=== PATIENT | female | born 1950 | race Caucasian/White ===

== ENCOUNTER 2023-11-06 21:38 | Inpatient (IN) | payer OTHER ==
[2023-11-06 21:44] VITALS: BMI 16.1
[2023-11-06 22:35] LABS: VENOUS BASE EXCESS 10.2 mmol/L (-2-2); VENOUS O2 SATURATION 24.9 % (70-80); VENOUS PH 7.282 (7.310-7.410)
[2023-11-06] MEDS ORDERED: ALBUTEROL SO4 2.5/IPRATROPIUM 0.5 INH SOL 3 ML VIAL.NEB. NEB ONE (22:35)
[2023-11-06 22:36] LABS: BASO % 0.9 % (0-2.0); EOS % 8.6 % (0-4.5); HEMATOCRIT 44.5 % (32.4-45.2); HEMOGLOBIN 14.9 GM/dL (10.7-15.3); LYMPH % 22.5 % (8-40); MCH 31.3 pg (25.7-33.7); MCHC 33.6 g/dl (32.0-36.0); MEAN CELL VOLUME 93.3 fl (80-96); MONO % 11.3 % (3.8-10.2); NEUT % 56.7 % (42.8-82.8); PLATELET COUNT 261 10^3/uL (134-434); RBC 4.77 M/mm3 (3.60-5.2); RDW 13.5 % (11.6-15.6); WHITE BLOOD COUNT 5.5 K/mm3 (4.0-10.0)
[2023-11-06] MEDS ORDERED: methylPREDNISolone NA SUCC 125 MG/2 ML VIAL ONE (22:36)
[2023-11-06] MEDS: methylPREDNISolone NA SUCC 125 MG/2 ML VIAL IVPUSH ONE (22:44)
[2023-11-06] MEDS ORDERED: ACETYLCYSTEINE 20% 200MG/ML 4 ML VIAL *FOR ORAL / INH USE ONLY ONE (22:45)
[2023-11-06] MEDS: ALBUTEROL SO4 2.5/IPRATROPIUM 0.5 INH SOL 3 ML VIAL.NEB. NEB SCH (22:46)
[2023-11-06] MEDS: ACETYLCYSTEINE 20% 200MG/ML 30 ML VIAL *FOR ORAL / INH USE ONLY NEB ONE (22:54)
[2023-11-06 22:57] LABS: POTASSIUM 4.7 mmol/L (3.5-5.1)
[2023-11-06 22:58] LABS: CALCIUM 9.7 mg/dL (8.5-10.1)
[2023-11-06 23:00] LABS: BLOOD UREA NITROGEN 9.6 mg/dL (7-18)
[2023-11-06 23:03] LABS: CREATININE 0.5 mg/dL (0.55-1.3)
[2023-11-06 23:04] LABS: BILIRUBIN,TOTAL 0.6 mg/dL (0.2-1); TOT PROT 7.1 g/dl (6.4-8.2)
[2023-11-06 23:50] LABS: N-TERMINAL BNP 187.7 pg/ml (5-125)
[2023-11-07] MEDS ORDERED: AZITHROMYCIN IVPB 500 MG/250 ML BAG IVPB ONE (00:52)
[2023-11-07] MEDS: AZITHROMYCIN IVPB 500 MG in DEXTROSE 5%-WATER - 250 ML IVPB ONE (01:05)
[2023-11-07] MEDS ORDERED: CEFTRIAXONE 1 GM/50 ML BAG ONE (01:51)
[2023-11-07] MEDS ORDERED: ALBUTEROL SO4 2.5/IPRATROPIUM 0.5 INH SOL 3 ML VIAL.NEB. NEB PRN (02:57)
[2023-11-07] MEDS: guaiFENesin 600 MG TABLET.ER (FP) PO SCH (06:14)
[2023-11-07] MEDS: methylPREDNISolone NA SUCC 40 MG/1 ML VIAL IVPUSH SCH ×2 (06:21→13:02)
[2023-11-07] MEDS ORDERED: ALBUTEROL SO4 2.5/IPRATROPIUM 0.5 INH SOL 3 ML VIAL.NEB. NEB ONE ×2 (06:43→10:45)
[2023-11-07] MEDS ORDERED: PIPERACILLIN/TAZOB 4.5 GM 4.5 GM/100 ML BAG IVPB ONE (06:43)
[2023-11-07 06:49] LABS: BASO % 0.3 % (0-2.0); EOS % 0.2 % (0-4.5); HEMOGLOBIN 14.4 GM/dL (10.7-15.3); MCH 32.3 pg (25.7-33.7); MCHC 34.3 g/dl (32.0-36.0); MEAN CELL VOLUME 94.3 fl (80-96); MEAN PLT VOLUME 7.4 fl (7.5-11.1); MONO % 1.8 % (3.8-10.2); NEUT % 82.7 % (42.8-82.8); PLATELET COUNT 230 10^3/uL (134-434); RBC 4.45 M/mm3 (3.60-5.2); RDW 12.9 % (11.6-15.6); WHITE BLOOD COUNT 2.7 K/mm3 (4.0-10.0)
[2023-11-07] MEDS: PIPERACILLIN/TAZOB 4.5 GM 4.5 GM in DEXTROSE 5%-WATER 100 ML IVPB SCH ×2 (07:00→16:54)
[2023-11-07] MEDS: ALBUTEROL SO4 2.5/IPRATROPIUM 0.5 INH SOL 3 ML VIAL.NEB. NEB SCH (07:00)
[2023-11-07 07:09] LABS: POTASSIUM 4.4 mmol/L (3.5-5.1)
[2023-11-07 07:13] LABS: ALBUMIN 3.6 g/dl (3.4-5.0); BLOOD UREA NITROGEN 7.3 mg/dL (7-18); MAGNESIUM 1.8 mg/dL (1.8-2.4)
[2023-11-07 07:15] LABS: CREATININE 0.4 mg/dL (0.55-1.3)
[2023-11-07 07:16] LABS: BILIRUBIN,TOTAL 1.1 mg/dL (0.2-1); PHOSPHOROUS 2.8 mg/dL (2.5-4.9); TOT PROT 6.3 g/dl (6.4-8.2)
[2023-11-07 08:09] LABS: ARTERIAL BLD GAS O2 SATURATION 91.8 % (95-98); ARTERIAL BLOOD GAS BASE EXCESS 7.7 mmol/L (-2-2); ARTERIAL BLOOD GAS PO2 66.2 mmHg (80-100)
[2023-11-07 08:18] LABS: ALLENS TEST POSITIVE
[2023-11-07] MEDS ORDERED: TIOTROPIUM BROMIDE 2.5 MCG (SPIRIVA) RESPIMAT INHALER IH SCH (10:00)
[2023-11-07] MEDS ORDERED: BUDESONIDE/FORMETEROL FUMARATE 160/4.5 mcg INHALER IH SCH (10:00)
[2023-11-07] MEDS ORDERED: NICOTINE 21 MG/24 HOURS TOPICAL PATCH ONE (10:45)
[2023-11-07] MEDS ORDERED: PREGABALIN 50 MG CAPSULE ONE (10:45)
[2023-11-07] MEDS ORDERED: ENOXAPARIN NA (PORCINE) 40 MG/0.4 ML DISP.SYRIN SQ ONE (10:46)
[2023-11-07] MEDS: BUDESONIDE/FORMETEROL FUMARATE 160/4.5 mcg INHALER IH SCH (11:30)
[2023-11-07] MEDS: NICOTINE 21 MG/24 HOURS TOPICAL PATCH TD SCH (11:30)
[2023-11-07] MEDS: ENOXAPARIN NA (PORCINE) 40 MG/0.4 ML DISP.SYRIN SQ SCH (11:30)
[2023-11-07] MEDS: PREGABALIN 100 MG CAPSULE PO SCH (11:30)
[2023-11-07] MEDS: ROFLUMILAST 500 MCG TABLET PO SCH (11:30)
[2023-11-07] MEDS: IPRATROPIUM BR 0.02% 0.5 MG/2.5 ML VIAL.NEB. NEB SCH (15:05)
[2023-11-07] MEDS: LEVALBUTEROL HCL 0.63 MG/3 ML VIAL.NEB. IH SCH (15:05)
[2023-11-07] MEDS: ATORVASTATIN CA 10 MG TABLET (FP) PO SCH (21:06)
[2023-11-07] MEDS: PREGABALIN 50 MG CAPSULE PO SCH (21:06)
[2023-11-07] MEDS: MIRTAZAPINE 15 MG TABLET (FP) PO SCH (21:06)
[2023-11-08 08:03] LABS: HEMATOCRIT 43.2 % (32.4-45.2); HEMOGLOBIN 14.5 GM/dL (10.7-15.3); MCH 31.6 pg (25.7-33.7); MCHC 33.7 g/dl (32.0-36.0); MEAN CELL VOLUME 93.8 fl (80-96); MEAN PLT VOLUME 7.5 fl (7.5-11.1); PLATELET COUNT 252 10^3/uL (134-434); RDW 13.2 % (11.6-15.6); WHITE BLOOD COUNT 4.3 K/mm3 (4.0-10.0)
[2023-11-08 08:16] LABS: POTASSIUM 5.1 mmol/L (3.5-5.1)
[2023-11-08 08:22] LABS: BLOOD UREA NITROGEN 9.3 mg/dL (7-18); CALCIUM 9.1 mg/dL (8.5-10.1)
[2023-11-08 08:25] LABS: CREATININE 0.4 mg/dL (0.55-1.3)
[2023-11-08] MEDS: AZITHROMYCIN IVPB 500 MG/250 ML BAG IVPB SCH (09:35)
[2023-11-08 18:41] VITALS: RESP 20
[2023-11-09] MEDS: FLUTICASONE PROP 0.05% 16 GM NASAL SPRAY NS ONE (01:18)
[2023-11-09 08:14] LABS: HEMATOCRIT 47.3 % (32.4-45.2); HEMOGLOBIN 15.7 GM/dL (10.7-15.3); MCH 31.1 pg (25.7-33.7); MCHC 33.2 g/dl (32.0-36.0); MEAN CELL VOLUME 93.7 fl (80-96); MEAN PLT VOLUME 7.7 fl (7.5-11.1); PLATELET COUNT 309 10^3/uL (134-434); RBC 5.05 M/mm3 (3.60-5.2); RDW 13.2 % (11.6-15.6); WHITE BLOOD COUNT 6.2 K/mm3 (4.0-10.0)
[2023-11-09 08:38] LABS: POTASSIUM 4.5 mmol/L (3.5-5.1)
[2023-11-09 08:49] LABS: BLOOD UREA NITROGEN 10.4 mg/dL (7-18)
[2023-11-09 08:51] LABS: CREATININE 0.5 mg/dL (0.55-1.3)
[2023-11-09 08:52] LABS: CALCIUM 9.2 mg/dL (8.5-10.1)
[2023-11-09] MEDS: SODIUM CHLORIDE 1 GM TABLET PO ONE (09:38)
[2023-11-09 14:28] VITALS: BP 138/72; PULSE 102; TEMP 98.4
== END 2023-11-09 16:30 | disposition home or self-care (01) | DRG 190 ==
LOC: JER 21:38 → JERBED 11-07 00:39 → J4W 11-07 12:44
PROVIDERS: ADMIT Internal Medicine; ATTEND Internal Medicine
DX: J43.2 Centrilobular emphysema (principal); E43 Unspecified severe protein-calorie malnutrition; J96.22 Acute and chronic respiratory failure with hypercapnia; E87.1 Hypo-osmolality and hyponatremia; R64 Cachexia; Z68.1 Body mass index [BMI] 19.9 or less, adult; J44.9 Chronic obstructive pulmonary disease, unspecified; E78.5 Hyperlipidemia, unspecified; F41.9 Anxiety disorder, unspecified; F17.210 Nicotine dependence, cigarettes, uncomplicated; M41.9 Scoliosis, unspecified; G62.9 Polyneuropathy, unspecified; Z85.43 Personal history of malignant neoplasm of ovary; Z99.81 Dependence on supplemental oxygen
CPT/HCPCS: 0241U-QW; 36415; 36600; 71045-TC-FY; 71250-TC; 80048; 80053; 82803; 83735; 83880; 83930; 83935; 84100; 84300; 84484; 85025; 85027; 85379; 87899; 93005; 93010; 93971-TC; 94640; 94660; 97116-GP; 97162-GP; 99285-25

== ENCOUNTER 2023-12-05 17:27 | Inpatient (IN) | payer OTHER ==
[2023-12-05] MEDS ORDERED: ONDANSETRON 4 MG/2 ML VIAL ONE (19:38)
[2023-12-05] MEDS: ONDANSETRON 4 MG/2 ML VIAL IVPB ONE (19:58)
[2023-12-05] MEDS: SODIUM CHLORIDE 0.9% 500 ML INFUS.BAG IV ONE (19:58)
[2023-12-05 20:10] LABS: BASO % 0.4 % (0-2.0); EOS % 1.1 % (0-4.5); HEMATOCRIT 41.6 % (32.4-45.2); LYMPH % 14.3 % (8-40); MCH 30.6 pg (25.7-33.7); MCHC 33.7 g/dl (32.0-36.0); MEAN CELL VOLUME 90.9 fl (80-96); MEAN PLT VOLUME 7.3 fl (7.5-11.1); MONO % 9.5 % (3.8-10.2); NEUT % 74.7 % (42.8-82.8); PLATELET COUNT 379 10^3/uL (134-434); RBC 4.57 M/mm3 (3.60-5.2); RDW 13.9 % (11.6-15.6); WHITE BLOOD COUNT 10.2 K/mm3 (4.0-10.0)
[2023-12-05 20:35] LABS: POTASSIUM 5.2 mmol/L (3.5-5.1)
[2023-12-05 20:37] LABS: CALCIUM 9.9 mg/dL (8.5-10.1)
[2023-12-05 20:38] LABS: ALBUMIN 3.4 g/dl (3.4-5.0); BLOOD UREA NITROGEN 23.3 mg/dL (7-18)
[2023-12-05 20:39] LABS: INR 0.87 (0.83-1.09)
[2023-12-05 20:41] LABS: CREATININE 0.8 mg/dL (0.55-1.3)
[2023-12-05 20:43] LABS: BILIRUBIN,TOTAL 1.4 mg/dL (0.2-1); TOT PROT 6.5 g/dl (6.4-8.2)
[2023-12-05] MEDS ORDERED: FAMOTIDINE 20 MG/50 ML IVPB 20 MG/50 ML MG IVPB ONE (21:00)
[2023-12-05] MEDS: FAMOTIDINE 20 MG/50 ML IVPB 20 MG/50 ML MG IVPB ONE (21:19)
[2023-12-05 21:30] LABS: HIV INTERPRETATION NEGATIVE (NEGATIVE)
[2023-12-05 22:39] LABS: POTASSIUM 4.4 mmol/L (3.5-5.1)
[2023-12-05 22:41] LABS: CALCIUM 8.9 mg/dL (8.5-10.1)
[2023-12-05 22:42] LABS: BLOOD UREA NITROGEN 20.4 mg/dL (7-18)
[2023-12-05 22:45] LABS: CREATININE 0.7 mg/dL (0.55-1.3)
[2023-12-05 22:46] LABS: BILIRUBIN,TOTAL 1.2 mg/dL (0.2-1); TOT PROT 5.6 g/dl (6.4-8.2)
[2023-12-05] MEDS ORDERED: ACETAMINOPHEN 1000 MG/100 ML BAG IVPB PRN (23:19)
[2023-12-05] MEDS ORDERED: ONDANSETRON 4 MG/2 ML VIAL IVPUSH PRN (23:30)
[2023-12-05] MEDS: SODIUM CHLORIDE 1,000 ML IV SCH (23:46)
[2023-12-06] MEDS: PREGABALIN 50 MG CAPSULE PO SCH (05:20)
[2023-12-06 07:31] LABS: BASO % 0.5 % (0-2.0); EOS % 1.1 % (0-4.5); HEMATOCRIT 37.9 % (32.4-45.2); HEMOGLOBIN 12.6 GM/dL (10.7-15.3); LYMPH % 14.5 % (8-40); MCH 30.6 pg (25.7-33.7); MCHC 33.2 g/dl (32.0-36.0); MEAN CELL VOLUME 92.2 fl (80-96); MEAN PLT VOLUME 7.7 fl (7.5-11.1); MONO % 10.3 % (3.8-10.2); NEUT % 73.6 % (42.8-82.8); PLATELET COUNT 337 10^3/uL (134-434); RBC 4.11 M/mm3 (3.60-5.2); RDW 13.7 % (11.6-15.6); WHITE BLOOD COUNT 8.7 K/mm3 (4.0-10.0)
[2023-12-06 07:39] LABS: POTASSIUM 4.1 mmol/L (3.5-5.1)
[2023-12-06 07:43] LABS: CALCIUM 8.5 mg/dL (8.5-10.1)
[2023-12-06 07:45] LABS: MAGNESIUM 1.8 mg/dL (1.8-2.4)
[2023-12-06 07:47] LABS: CREATININE 0.6 mg/dL (0.55-1.3)
[2023-12-06 07:48] LABS: BILIRUBIN,TOTAL 1.3 mg/dL (0.2-1); TOT PROT 5.3 g/dl (6.4-8.2)
[2023-12-06 07:50] LABS: PHOSPHOROUS 3.4 mg/dL (2.5-4.9)
[2023-12-06] MEDS ORDERED: LEVALBUTEROL HCL 0.63 MG/3 ML VIAL.NEB. IH ONE ×2 (09:09→20:43)
[2023-12-06] MEDS: LEVALBUTEROL HCL 0.63 MG/3 ML VIAL.NEB. IH SCH (09:44)
[2023-12-06] MEDS: TIOTROPIUM BROMIDE 2.5 MCG (SPIRIVA) RESPIMAT INHALER IH SCH (11:00)
[2023-12-06] MEDS: BUDESONIDE/FORMETEROL FUMARATE 160/4.5 mcg INHALER IH SCH (11:00)
[2023-12-06] MEDS: ROFLUMILAST 500 MCG TABLET PO SCH (11:00)
[2023-12-06] MEDS ORDERED: NICOTINE 7 MG/24 HOURS TOPICAL PATCH TD ONE (11:15)
[2023-12-06] MEDS: NICOTINE 7 MG/24 HOURS TOPICAL PATCH TD SCH (11:26)
[2023-12-06] MEDS ORDERED: ESCITALOPRAM OXALATE 10 MG TABLET ONE (20:42)
[2023-12-06] MEDS: ESCITALOPRAM OXALATE 10 MG TABLET PO SCH (21:08)
[2023-12-06] MEDS: SODIUM CHLORIDE 1,000 ML IV SCH (21:09)
[2023-12-06] MEDS ORDERED: MIRTAZAPINE 15 MG TABLET (FP) PO SCH (22:00)
[2023-12-07 00:59] VITALS: BMI 12.9
[2023-12-07] MEDS: MELATONIN 5 MG TABLETS PO ONE (03:15)
[2023-12-07 09:08] LABS: BASO % 0.7 % (0-2.0); HEMATOCRIT 37.4 % (32.4-45.2); HEMOGLOBIN 12.7 GM/dL (10.7-15.3); LYMPH % 13.1 % (8-40); MCH 31.1 pg (25.7-33.7); MCHC 33.9 g/dl (32.0-36.0); MEAN CELL VOLUME 91.8 fl (80-96); MEAN PLT VOLUME 7.5 fl (7.5-11.1); MONO % 12.6 % (3.8-10.2); NEUT % 72.6 % (42.8-82.8); PLATELET COUNT 325 10^3/uL (134-434); RBC 4.07 M/mm3 (3.60-5.2); RDW 13.8 % (11.6-15.6); WHITE BLOOD COUNT 6.2 K/mm3 (4.0-10.0)
[2023-12-07 09:28] LABS: POTASSIUM 3.8 mmol/L (3.5-5.1)
[2023-12-07 09:32] LABS: ALBUMIN 2.8 g/dl (3.4-5.0); CALCIUM 8.6 mg/dL (8.5-10.1)
[2023-12-07 09:33] LABS: BLOOD UREA NITROGEN 17.9 mg/dL (7-18)
[2023-12-07 09:36] LABS: CREATININE 0.4 mg/dL (0.55-1.3)
[2023-12-07 09:38] LABS: BILIRUBIN,TOTAL 1.8 mg/dL (0.2-1); TOT PROT 5.1 g/dl (6.4-8.2)
[2023-12-07] MEDS ORDERED: SODIUM CHLORIDE 0.45% 1,000 ML IV SCH (13:00)
[2023-12-07] MEDS: SODIUM CHLORIDE 0.45% 1,000 ML IV SCH (13:26)
[2023-12-07] MEDS: AMPICILLIN NA/SULBACTAM NA 1.5 GM in SODIUM CHLORIDE 100 ML IVPB SCH (18:40)
[2023-12-07] MEDS: ATORVASTATIN CA 10 MG TABLET (FP) PO SCH (21:10)
[2023-12-08] MEDS: NICOTINE 14 MG/24 HOURS TOPICAL PATCH TD SCH (09:55)
[2023-12-08 11:11] LABS: POTASSIUM 3.7 mmol/L (3.5-5.1)
[2023-12-08 11:20] LABS: ALBUMIN 2.7 g/dl (3.4-5.0); CALCIUM 8.3 mg/dL (8.5-10.1)
[2023-12-08 11:21] LABS: BLOOD UREA NITROGEN 13.2 mg/dL (7-18)
[2023-12-08 11:24] LABS: BILIRUBIN,TOTAL 1.4 mg/dL (0.2-1); CREATININE 0.4 mg/dL (0.55-1.3)
[2023-12-08] MEDS: AMOX TR/POT CLAV 875MG/125MG TABLETS (FP) PO SCH (17:17)
[2023-12-08 17:36] VITALS: RESP 20
[2023-12-08 20:23] LABS: BILIRUBIN,DIRECT 0.5 mg/dL (0.0-0.2)
[2023-12-09 10:21] LABS: HEMATOCRIT 39.5 % (32.4-45.2); HEMOGLOBIN 12.8 GM/dL (10.7-15.3); MCH 30.3 pg (25.7-33.7); MCHC 32.4 g/dl (32.0-36.0); MEAN CELL VOLUME 93.4 fl (80-96); MEAN PLT VOLUME 7.4 fl (7.5-11.1); PLATELET COUNT 364 10^3/uL (134-434); RBC 4.23 M/mm3 (3.60-5.2); RDW 13.5 % (11.6-15.6)
[2023-12-09 10:38] LABS: POTASSIUM 3.7 mmol/L (3.5-5.1)
[2023-12-09 10:40] LABS: CALCIUM 8.5 mg/dL (8.5-10.1)
[2023-12-09 10:41] LABS: ALBUMIN 2.9 g/dl (3.4-5.0); BLOOD UREA NITROGEN 6.3 mg/dL (7-18); MAGNESIUM 1.7 mg/dL (1.8-2.4)
[2023-12-09 10:44] LABS: CREATININE 0.4 mg/dL (0.55-1.3); PHOSPHOROUS 1.5 mg/dL (2.5-4.9)
[2023-12-09 10:45] LABS: BILIRUBIN,TOTAL 0.9 mg/dL (0.2-1)
[2023-12-09 10:46] LABS: TOT PROT 5.5 g/dl (6.4-8.2)
[2023-12-09 13:46] VITALS: BP 93/62; PULSE 86; TEMP 99.3
[2023-12-09] MEDS: MAGNESIUM OXIDE 400 MG TABLET (FP) PO ONE (15:20)
[2023-12-09] MEDS: NAPH,MB-DB/K PH,MBDB POWDER PACKET PO ONE (15:20)
== END 2023-12-09 15:59 | disposition home or self-care (01) | DRG 388 ==
LOC: JER 17:27 → JERBED 21:48 → J6S 12-07 00:11
PROVIDERS: ADMIT Internal Medicine; ATTEND Internal Medicine
DX: K56.690 Other partial intestinal obstruction (principal); E43 Unspecified severe protein-calorie malnutrition; E87.1 Hypo-osmolality and hyponatremia; J96.11 Chronic respiratory failure with hypoxia; Z68.1 Body mass index [BMI] 19.9 or less, adult; J44.9 Chronic obstructive pulmonary disease, unspecified; K04.7 Periapical abscess without sinus; K57.90 Diverticulosis of intestine, part unspecified, without perforation or abscess without bleeding; M41.80 Other forms of scoliosis, site unspecified; G62.9 Polyneuropathy, unspecified; I71.40 Abdominal aortic aneurysm, without rupture, unspecified; E78.5 Hyperlipidemia, unspecified; Z99.81 Dependence on supplemental oxygen
CPT/HCPCS: 36415; 71045-TC-FY; 74019-TC-FY; 74177-TC; 80053; 82248; 83605; 83690; 83735; 84100; 85025; 85027; 85610; 85730; 86803; 86850; 86900; 86901; 87389; 93005; 93010; 97116-GP; 97162-GP; 99285-25